=== PATIENT | female | born 1955 | race Caucasian/White ===

== ENCOUNTER → 2017-07-03 | Outpatient (CLI) | payer BC ==
[2016-12-29 15:00] VITALS: BP 136/68
[~2017-07-03] MED LIST: ALLO100T PO; ALLO300T PO; ATOR10TA60 PO; CANA300T PO; CHOL200044 PO; FURO40TA4 PO; LIRA0.6P2 SQ; LISI1TAB7 PO; LOSA100T6 PO; METF-620 PO; OMEG1CAP38 PO; PHEN1CPM PO
--- NOTE | 2017-07-04 08:55 | KCIC ---
DATE: 07/03/2017 EXAM: MAMMO JUMANA SCREENING BILATERAL HISTORY: Screening COMPARISON: 07/29/2015 This study was interpreted with the benefit of Computerized Aided Detection (CAD). FINDINGS: Breast Density: FATTY The Breast Parenchyma is primarily fatty replaced. Breast parenchyma level density A.. There has been little change when compared to the previous exam IMPRESSION: Benign findings BI-RADS CATEGORY: 2 BENIGN FINDING(S) RECOMMENDED FOLLOW-UP: 12M 12 MONTH FOLLOW-UP PQRS compliance statement: Patient information was entered into a reminder system with a target due date 07/03/2018 for the next mammogram. Mammography is a sensitive method for finding small breast cancers, but it does not detect them all and is not a substitute for careful clinical examination. A negative mammogram does not negate a clinically suspicious finding and should not result in delay in biopsying a clinically suspicious abnormality. "Our facility is accredited by the [employer] Mammography Program."
== END | disposition home or self-care (01) ==
LOC: KCIC MAMMO 16:42
PROVIDERS: ATTEND Family Medicine
DX: Z12.31 Encounter for screening mammogram for malignant neoplasm of breast (principal)
CPT/HCPCS: 77063; G0202; 77067

== ENCOUNTER 2017-10-27 16:46 | Inpatient (IN) | payer BC ==
[2017-10-27 17:36] LABS: ADD MAN DIFF? NO
[2017-10-27 17:39] LABS: BASO # 0.1 x10^3/uL (0.0-0.2); BASO % 1 % (0-3); EOS # 0.2 x10^3/uL (0.0-0.7); EOS % 3 % (0-3); HEMATOCRIT 38.7 % (36.0-47.0); HEMOGLOBIN 12.8 g/dL (12.0-15.5); LYMPH # 1.5 x10^3/uL (1.0-4.8); LYMPH % 19 % (24-48); MEAN CORPUSCULAR HEMOGLOBIN 30 pg (25-35); MEAN CORPUSCULAR HGB CONC 33 g/dL (31-37); MEAN CORPUSCULAR VOLUME 89 fL (79-100); MONO # 0.4 x10^3/uL (0.0-1.1); MONO % 5 % (0-9); NEUT # 5.7 x10^3uL (1.8-7.7); NEUT % 72 % (31-73); PLATELET COUNT 174 x10^3/uL (140-400); RED BLOOD COUNT 4.35 x10^6/uL (3.50-5.40); RED CELL DISTRIBUTION WIDTH 15.3 % (11.5-14.5); WHITE BLOOD COUNT 7.8 x10^3/uL (4.0-11.0)
[2017-10-27] MEDS: ONDANSETRON PF 4 MG/2 ML VIAL. IV ×2 (17:42)
[2017-10-27] MEDS: IV NORMAL SALINE 1000ML BAG 1,000 ML IV ×4 (17:42→22:11)
[2017-10-27] MEDS: fentaNYL PF VIAL 100 MCG/2 ML VIAL IV ×4 (17:42→22:29)
[2017-10-27] MEDS: NITROGLYCERIN SUBLINGUAL 0.4 MG BOTTLE OF 25. SL ×4 (17:43→17:54)
[2017-10-27] MEDS: ASPIRIN CHEWABLE 81 MG TABLET. PO ×2 (17:43)
[2017-10-27 17:50] LABS: ANION GAP 14 (6-14); BLOOD UREA NITROGEN 15 mg/dL (7-20); BUN/CREATININE RATIO 15 (6-20); CALCIUM 8.8 mg/dL (8.5-10.1); CARBON DIOXIDE 28 mmol/L (21-32); CHLORIDE 115 mmol/L (98-107); GFR 55.8; GLUCOSE 267 mg/dL (70-99); SODIUM 157 mmol/L (136-145)
[2017-10-27 17:56] LABS: ALBUMIN 2.8 g/dL (3.4-5.0); ALBUMIN/GLOBULIN RATIO 0.7 (1.0-1.7); ALK PHOS 122 U/L (46-116); ALT (SGPT) 57 U/L (14-59); AST (SGOT) 57 U/L (15-37); LIPASE 171 U/L (73-393); MAGNESIUM 1.5 mg/dL (1.8-2.4); TOTAL BILIRUBIN 0.3 mg/dL (0.2-1.0); TOTAL PROTEIN 7.1 g/dL (6.4-8.2)
[2017-10-27 18:02] LABS: TROPONINI < 0.017 ng/mL (0.000-0.055)
[2017-10-27 18:03] LABS: NT-PRO BNP 140 pg/mL (0-124)
[2017-10-27 18:03] LABS: CKMB INDEX 1.2 % (0-4); CKMB MASS 1.5 ng/mL (0.0-3.6); CREATINE KINASE 122 U/L (26-192)
[2017-10-27 18:21] LABS: AGAP ISTAT 15 mmol/L (6-14); BUN ISTAT 15 mg/dL (8-26); CHLORIDE ISTAT 100 mmol/L (98-110); CREATININE ISTAT 0.9 mg/dL (0.5-1.4); GLUCOSE ISTAT 219 mg/dL (70-99); HEMATOCRIT ISTAT 35 % (36-40); HEMOGLOBIN ISTAT 11.9 g/dL (12-15); ION CA ISTAT 1.17 mmol/L (1.13-1.32); POTASSIUM ISTAT 3.9 mmol/L (3.5-5.0); SODIUM ISTAT 138 mmol/L (135-145); TOT CO2 ISTAT 27 mmol/L (23-32)
[2017-10-27] MEDS ORDERED: DEXTROSE 50% 25 GM / 50ML DISP.SYRIN. IV ×2 (21:30)
[2017-10-27 22:05] LABS: TROPONINI < 0.017 ng/mL (0.000-0.055)
[2017-10-27 22:26] LABS: POC GLUCOSE 127 mg/dL (70-99)
[2017-10-27] MEDS: COLCHICINE 0.6 MG TABLET PO ×2 (22:30)
[2017-10-27] MEDS: CHOLECALCIFEROL (VITAMIN D3) 1,000 UNIT TABLET PO ×2 (22:30)
[2017-10-27] MEDS: LIDOCAINE (700MG/PATCH) PATCH. TD ×2 (22:31)
[2017-10-27] MEDS ORDERED: MORPHINE IR 15 MG TABLET PO ×2 (23:00)
[2017-10-27] MEDS: MORPHINE SULFATE 4 MG/ML DISP.SYRIN. IV ×2 (23:20)
[2017-10-28] MEDS: MORPHINE SULFATE 4 MG/ML DISP.SYRIN. IV ×2 (02:38)
[2017-10-28] MEDS: ONDANSETRON PF 4 MG/2 ML VIAL. IV ×4 (04:06→11:53)
[2017-10-28 05:03] LABS: ADD MAN DIFF? NO
[2017-10-28 05:21] LABS: BASO # 0.1 x10^3/uL (0.0-0.2); BASO % 1 % (0-3); EOS # 0.3 x10^3/uL (0.0-0.7); EOS % 3 % (0-3); HEMATOCRIT 36.6 % (36.0-47.0); HEMOGLOBIN 11.9 g/dL (12.0-15.5); LYMPH # 1.8 x10^3/uL (1.0-4.8); LYMPH % 22 % (24-48); MEAN CORPUSCULAR HEMOGLOBIN 29 pg (25-35); MEAN CORPUSCULAR HGB CONC 33 g/dL (31-37); MEAN CORPUSCULAR VOLUME 89 fL (79-100); MONO # 0.5 x10^3/uL (0.0-1.1); MONO % 6 % (0-9); NEUT # 5.6 x10^3uL (1.8-7.7); NEUT % 69 % (31-73); PLATELET COUNT 159 x10^3/uL (140-400); RED CELL DISTRIBUTION WIDTH 15.7 % (11.5-14.5); WHITE BLOOD COUNT 8.2 x10^3/uL (4.0-11.0)
[2017-10-28 06:17] LABS: ANION GAP 8 (6-14); BLOOD UREA NITROGEN 15 mg/dL (7-20); CALCIUM 8.8 mg/dL (8.5-10.1); CARBON DIOXIDE 30 mmol/L (21-32); CHLORIDE 102 mmol/L (98-107); CREATININE 0.8 mg/dL (0.6-1.0); GFR 72.2; GLUCOSE 126 mg/dL (70-99); POTASSIUM 3.7 mmol/L (3.5-5.1); SODIUM 140 mmol/L (136-145)
[2017-10-28 06:25] LABS: URIC ACID 4.1 mg/dL (2.6-6.0)
[2017-10-28] MEDS: IV NORMAL SALINE 1000ML BAG 1,000 ML IV ×4 (07:45→10:19)
[2017-10-28 07:58] LABS: POC GLUCOSE 229 mg/dL (70-99)
[2017-10-28] MEDS: LOSARTAN POTASSIUM 50 MG TABLET. PO ×2 (08:02)
[2017-10-28] MEDS: INSULIN ASPART 300 UNITS/3 ML INSULN.PEN SQ ×6 (08:03→17:02)
[2017-10-28] MEDS: LISINOPRIL 20 MG TABLET PO ×2 (09:00)
[2017-10-28] MEDS: FUROSEMIDE 40 MG TABLET. PO ×4 (09:00→13:45)
[2017-10-28] MEDS: COLCHICINE 0.6 MG TABLET PO ×2 (09:00)
[2017-10-28] MEDS ORDERED: ALLOPURINOL 300 MG TABLET. PO ×2 (09:00)
[2017-10-28] MEDS: ATORVASTATIN CALCIUM 10 MG TABLET. PO ×4 (09:00→21:11)
[2017-10-28] MEDS: CHOLECALCIFEROL (VITAMIN D3) 1,000 UNIT TABLET PO ×4 (09:00→21:11)
[2017-10-28] MEDS: LIDOCAINE (700MG/PATCH) PATCH. TD ×2 (09:00)
[2017-10-28] MEDS: hydroCHLOROthiazide 25 MG TABLET PO ×2 (09:00)
[2017-10-28] MEDS ORDERED: ALLOPURINOL 100 MG TABLET. PO ×2 (09:00)
[2017-10-28] MEDS: ACETAMINOPHEN 325 MG TABLET. PO ×2 (09:30)
[2017-10-28] MEDS ORDERED: ONDANSETRON PF 4 MG/2 ML VIAL. IV ×2 (11:00)
[2017-10-28 11:43] LABS: POC GLUCOSE 213 mg/dL (70-99)
[2017-10-28] MEDS: amLODIPine BESYLATE 10 MG TABLET PO ×2 (13:08)
[2017-10-28 16:53] LABS: POC GLUCOSE 168 mg/dL (70-99)
[2017-10-28 21:09] LABS: POC GLUCOSE 143 mg/dL (70-99)
[2017-10-29 05:17] LABS: ADD MAN DIFF? NO
[2017-10-29 05:38] LABS: BASO # 0.1 x10^3/uL (0.0-0.2); BASO % 1 % (0-3); EOS # 0.2 x10^3/uL (0.0-0.7); EOS % 3 % (0-3); HEMATOCRIT 35.9 % (36.0-47.0); HEMOGLOBIN 12.1 g/dL (12.0-15.5); LYMPH # 1.3 x10^3/uL (1.0-4.8); LYMPH % 18 % (24-48); MEAN CORPUSCULAR HEMOGLOBIN 30 pg (25-35); MEAN CORPUSCULAR HGB CONC 34 g/dL (31-37); MEAN CORPUSCULAR VOLUME 88 fL (79-100); MONO # 0.5 x10^3/uL (0.0-1.1); MONO % 7 % (0-9); NEUT % 71 % (31-73); PLATELET COUNT 160 x10^3/uL (140-400); RED BLOOD COUNT 4.07 x10^6/uL (3.50-5.40); RED CELL DISTRIBUTION WIDTH 15.1 % (11.5-14.5)
[2017-10-29 05:48] LABS: ANION GAP 7 (6-14); BLOOD UREA NITROGEN 19 mg/dL (7-20); CALCIUM 9.1 mg/dL (8.5-10.1); CARBON DIOXIDE 30 mmol/L (21-32); CHLORIDE 101 mmol/L (98-107); CREATININE 1.1 mg/dL (0.6-1.0); GLUCOSE 165 mg/dL (70-99); POTASSIUM 3.8 mmol/L (3.5-5.1); SODIUM 138 mmol/L (136-145)
[2017-10-29] MEDS: INSULIN ASPART 300 UNITS/3 ML INSULN.PEN SQ ×4 (08:00→12:00)
[2017-10-29 08:28] LABS: POC GLUCOSE 231 mg/dL (70-99)
[2017-10-29] MEDS: LIDOCAINE (700MG/PATCH) PATCH. TD ×2 (09:00)
[2017-10-29] MEDS: FUROSEMIDE 40 MG TABLET. PO ×2 (09:37)
[2017-10-29] MEDS: LOSARTAN POTASSIUM 50 MG TABLET. PO ×2 (09:37)
[2017-10-29] MEDS: COLCHICINE 0.6 MG TABLET PO ×2 (09:38)
[2017-10-29] MEDS: CHOLECALCIFEROL (VITAMIN D3) 1,000 UNIT TABLET PO ×2 (09:38)
[2017-10-29] MEDS: amLODIPine BESYLATE 10 MG TABLET PO ×2 (09:38)
[2017-10-29 11:38] LABS: POC GLUCOSE 212 mg/dL (70-99)
== END 2017-10-29 14:40 | disposition home or self-care (01) | DRG 313 ==
LOC: ER 16:46 → 5 SOUTH 18:07
DX: R07.89 Other chest pain (principal); I25.119 Atherosclerotic heart disease of native coronary artery with unspecified angina pectoris; I50.33 Acute on chronic diastolic (congestive) heart failure; E11.22 Type 2 diabetes mellitus with diabetic chronic kidney disease; E66.01 Morbid (severe) obesity due to excess calories; I13.0 Hypertensive heart and chronic kidney disease with heart failure and stage 1 through stage 4 chronic kidney disease, or unspecified chronic kidney disease; Z68.43 Body mass index [BMI] 50.0-59.9, adult; E78.5 Hyperlipidemia, unspecified; G47.33 Obstructive sleep apnea (adult) (pediatric); K21.9 Gastro-esophageal reflux disease without esophagitis; N18.9 Chronic kidney disease, unspecified; Z82.49 Family history of ischemic heart disease and other diseases of the circulatory system; Z87.891 Personal history of nicotine dependence; Z96.659 Presence of unspecified artificial knee joint; M19.90 Unspecified osteoarthritis, unspecified site; Z88.0 Allergy status to penicillin; Z90.49 Acquired absence of other specified parts of digestive tract; Z90.710 Acquired absence of both cervix and uterus
CPT/HCPCS: 36415; 71045; 80047; 80048; 80053; 82553; 82962; 83690; 83735; 83880; 84484; 84550; 85025; 93005; 96374; 96375; 99285; 99285-25; J1815; J2270; J2405; J3010; J7030

== ENCOUNTER → 2018-03-02 | Outpatient (CLI) | payer BC | END | disposition home or self-care (01) | LOC: US 12:34 | DX: I87.2 Venous insufficiency (chronic) (peripheral) (principal); M79.89 Other specified soft tissue disorders; M79.604 Pain in right leg; M79.605 Pain in left leg | CPT/HCPCS: 93970 ==

== ENCOUNTER → 2018-08-13 | Outpatient (CLI) | payer MEDICARE, BC ==
[2017-10-29 10:59] VITALS: BP 143/67
[~2018-08-13] MED LIST changes: +AMLO10TA4 PO; +INSU3INS SQ; -LOSA100T6 PO; +LOSA100T7 PO; -METF-620 PO; +METF10007 PO
--- NOTE | 2018-08-14 13:15 | KCIC ---
Bilateral digital screening mammograms with 3-D tomosynthesis: Reason for examination: Routine screening. Comparison is made to previous studies dated 07/03/2017 and 07/29/2015. Bilateral mammograms in CC and oblique projections were obtained with 2-D imaging and 3-D tomosynthesis imaging on a [employer] Inspiration unit and reviewed on the workstation. Interpretation was made with the benefit of CAD. The skin and nipples show no abnormalities. No abnormal axillary lymph nodes are seen. The breast parenchyma is predominantly fatty. (Breast density: Category A.) There are no dominant masses, suspicious calcifications or architectural distortion. Impression: No evidence of malignancy. Recommend routine screening. BI-RAD Category 1: Negative. "Our facility is accredited by the [employer] Mammography Program." This patient's information has been entered into a reminder system for the patient to be notified with the results of her examination and a target date for the next mammogram. Electronically signed by: Domonique Zimmer MD (08/14/2018 1:11 PM) [id number]
== END | disposition home or self-care (01) ==
LOC: KCIC MAMMO 16:34
PROVIDERS: ATTEND Family Medicine
DX: Z12.31 Encounter for screening mammogram for malignant neoplasm of breast (principal)
CPT/HCPCS: 77063; 77067

== ENCOUNTER → 2018-11-20 | Outpatient (CLI) | payer MEDICARE, BC ==
[2017-10-29 10:59] VITALS: BP 143/67
[~2018-11-20] MED LIST changes: +IOHEXOL 300 MG/ML 100ML VIAL. IV ONE; +LOSA100T14 PO; -LOSA100T7 PO
--- NOTE | 2018-11-20 14:31 | KCIC ---
CT ANGIOGRAPHY CHEST Indication: Elevated d-dimer. Bilateral leg edema. . Comparison: No comparison is available. Technique: After intravenous contrast administration, CT imaging was performed of the chest. MIP reconstructions were obtained. Exposure: One or more of the following individualized dose reduction techniques were utilized for this examination: 1. Automated exposure control 2. Adjustment of the mA and/or kV according to patient size 3. Use of iterative reconstruction technique. Findings: No evidence of a pulmonary embolism. Note there is suboptimal visualization of the segmental branches due to limited opacification. No aortic aneurysm or evidence of aortic dissection in the chest. Proximal great vessels are patent. No significant lymph node enlargement. No pericardial effusion or pleural effusion is identified. Thyroid unremarkable. Small noncalcified pulmonary nodule in the right upper lobe measures 6 mm in diameter, coronal image 82, as well as axial series 7, image 50. No consolidating infiltrate. Trachea and mainstem bronchi appear patent. Limited scans through the upper abdomen demonstrate no acute abnormality. Gallbladder appears surgically absent. Degenerative spondylosis of the spine. Small sclerotic lesion within an upper thoracic vertebrae is likely a benign bone island. IMPRESSION: 1. Negative for pulmonary embolism. 2. Incidental right upper lobe pulmonary nodule measures 6 mm. As per revised Fleischner guidelines, recommend follow-up CT chest in 6-12 months. Electronically signed by: Angel Liu MD (11/20/2018 2:28 PM) [facility]
--- NOTE | 2018-11-20 14:51 | KCIC ---
Bilateral lower extremity venous duplex study 11/20/2018 1:00 PM Clinical History: Bilateral lower extremity pain and edema. Comparison: None Technique: Using a combination of real time ultrasound imaging and color-flow and pulse Doppler imaging techniques along with graded compression and augmentation, duplex evaluation of the deep venous system of the both lower extremities was performed. Multiple images were obtained. Findings: There is no sonographic evidence of deep venous thrombosis involving the visualized deep venous structures of either lower extremity. Peroneal veins are poorly visualized bilaterally secondary to subcutaneous edema patient body habitus. Impression: No evidence of deep venous thrombosis involving the visualized deep veins of the bilateral lower extremities Electronically signed by: Robert Pena MD (11/20/2018 2:48 PM) [facility]
== END | disposition home or self-care (01) ==
LOC: KCIC US 13:00
PROVIDERS: ATTEND Family Medicine
DX: R91.1 Solitary pulmonary nodule (principal); M47.894 Other spondylosis, thoracic region; I10 Essential (primary) hypertension; E11.9 Type 2 diabetes mellitus without complications; R60.0 Localized edema
CPT/HCPCS: 71275; 82565; 93970; Q9967

== ENCOUNTER → 2019-06-03 | Outpatient (CLI) | payer MEDICARE, BC ==
[2017-10-29 10:59] VITALS: BP 143/67
[~2019-06-03] MED LIST changes: -IOHEXOL 300 MG/ML 100ML VIAL. IV ONE; +LISI1TAB20 PO; -LISI1TAB7 PO
--- NOTE | 2019-06-03 12:37 | KCIC ---
EXAM: CT Chest without IV contrast CLINICAL HISTORY: LUNG NODULE SURVEILLANCE COMPARISON: 11/20/2018 TECHNIQUE: CT of the chest without intravenous contrast. Axial, coronal and sagittal reformatted images were generated. ---PQRS compliance statement - One or more of the following individualized dose reduction techniques were utilized for this study: 1. Automated exposure control 2. Adjustment of the mA and/or kV according to patient size 3. Use of iterative reconstruction technique--- FINDINGS: Lack of intravenous contrast limits evaluation of solid organs, vasculature, and lymph nodes. Chest: Mitral annular calcifications are seen. Heart is not enlarged. No pericardial effusion. Aortic calcifications are noted. No pleural effusion or pneumothorax. Within the constraints of this noncontrast examination, no mediastinal or hilar lymphadenopathy. A 5 mm right upper lobe lung nodule (series 6 image 63) is stable. In addition a 5 mm lung nodule (series 6 image 65) in the right upper lobe is also stable. 5 mm fissural lung nodule along the major fissure (series 2 image 28) is stable. A few other lung nodules measuring 3-4 mm are seen bilaterally, also stable. Visualized Upper abdomen: Mild nodular appearance of the hepatic margin with asymmetric enlargement of the left hepatic lobe, nonspecific but may be seen with cirrhosis. Cholecystectomy clips are seen. Bones: Osseous structures are grossly stable. Degenerative changes of spine are seen. IMPRESSION: 1. Multiple bilateral lung nodules are seen measuring up to 5 mm, in general stable. Continued follow-up in 12 months is recommended to ensure stability. Electronically signed by: Fabricio Bailey MD (06/03/2019 12:35 PM) [facility]
== END | disposition home or self-care (01) ==
LOC: KCIC CT 10:06
PROVIDERS: ATTEND Family Medicine
DX: I70.0 Atherosclerosis of aorta (principal); I34.8 Other nonrheumatic mitral valve disorders; R91.8 Other nonspecific abnormal finding of lung field; M47.814 Spondylosis without myelopathy or radiculopathy, thoracic region; Z90.49 Acquired absence of other specified parts of digestive tract
CPT/HCPCS: 71250

== ENCOUNTER → 2019-09-16 | Outpatient (CLI) | payer MEDICARE, BC ==
[2017-10-29 10:59] VITALS: BP 143/67
--- NOTE | 2019-09-16 12:17 | CARD ---
MR#: [id number] Date of Study: 09/16/2019 Ordering Physician: STELLA GOMEZ, Referring Physician: STELLA GOMEZ, Tech: Oriana Benjamin [facility] RE[facility] EXAM: Two-dimensional and M-mode echocardiogram with Doppler and color Doppler. Other Information Quality : AverageHR: 68bpm Rhythm : NSRTechnically limited study due to body habitus. INDICATION Dyspnea 2D DIMENSIONS RVDd2.8 (2.9-3.5cm)Left Atrium(2D)2.6 (1.6-4.0cm) IVSd1.2 (0.7-1.1cm)Aortic Root(2D)3.0 (2.0-3.7cm) LVDd4.9 (3.9-5.9cm)LVOT Diameter2.0 (1.8-2.4cm) PWd1.0 (0.7-1.1cm)LVDs3.4 (2.5-4.0cm) FS (%) 30.0 %SV64.2 ml LVEF(%)57.1 (>50%) M-Mode DIMENSIONS Left Atrium(MM)2.73 (2.5-4.0cm)Aortic Root3.38 (2.2-3.7cm) Aortic Valve AoV Peak Hiro.181.0cm/sAoV VTI34.6cm AO Peak GR.13.1mmHgLVOT Peak Hiro.112.0cm/s AO Mean GR.8mmHgAVA (VMAX)2.01cm2 HUMPHREY (VTI)2.00cm2 Mitral Valve MV E Onmxqadb62.8cm/sMV E Peak Gr.7mmHg MV DECEL CPRA967woOG A Qzvcbksh878.7cm/s MV E Mean Gr.2mmHgE/A Ratio0.8 Pulmonary Valve PV Peak Brgbkjqi037.9cm/s Tricuspid Valve TR P. Feqznsgj924db/sRAP CIGFQESX3ysRh TR Peak Gr.90kbZiVDCO83nhGm LEFT VENTRICLE The left ventricle is normal size. There is mild concentric left ventricular hypertrophy. The left ve ntricular systolic function is normal and the ejection fraction is within normal range. The Ejection Fraction is 55-60%. There is normal LV segmental wall motion. Transmitral Doppler flow pattern is Gra de I-abnormal relaxation pattern. RIGHT VENTRICLE The right ventricle is normal size. There is normal right ventricular wall thickness. The right ventr icular systolic function is normal. ATRIA The left atrium size is normal. The right atrium size is normal. The interatrial septum is intact wit h no evidence for an atrial septal defect or patent foramen ovale as noted on 2-D or Doppler imaging. AORTIC VALVE The aortic valve is normal in structure and function. The aortic valve is trileaflet. Doppler and Col or Flow revealed no significant aortic regurgitation. There is no significant aortic valvular stenosi s. There is no aortic valvular vegetation. MITRAL VALVE Mitral annular calcification is mild. There is no evidence of mitral valve prolapse. There is no mitr al valve stenosis. Doppler and Color-flow revealed trace mitral regurgitation. TRICUSPID VALVE The tricuspid valve is normal in structure and function. Doppler and Color Flow revealed trace tricus pid regurgitation. The PA pressure was estimated at 31 mmHg. There is no tricuspid valve prolapse or vegetation. There is no tricuspid valve stenosis. PULMONIC VALVE The pulmonic valve is not well visualized. GREAT VESSELS The aortic root is normal in size. The ascending aorta is normal in size. The IVC is normal in size a nd collapses >50% with inspiration. PERICARDIAL EFFUSION There is no evidence of significant pericardial effusion. Critical Notification Critical Value: No <Conclusion> The left ventricle is normal size. The left ventricular systolic function is normal and the ejection fraction is within normal range. The Ejection Fraction is 55-60%. There is mild concentric left ventricular hypertrophy. Doppler and Color Flow revealed no significant aortic regurgitation. There is no significant aortic valvular stenosis. Doppler and Color-flow revealed trace mitral regurgitation. Doppler and Color Flow revealed trace tricuspid regurgitation. The PA pressure was estimated at 31 mmHg. Signed by : Neri Randle MD Electronically Approved : 09/16/2019 12:16:55
== END | disposition home or self-care (01) ==
LOC: ECHO 10:47
PROVIDERS: ATTEND Internal Medicine Cardiovascular Disease
DX: I34.8 Other nonrheumatic mitral valve disorders (principal); I51.7 Cardiomegaly
CPT/HCPCS: 93306

== ENCOUNTER → 2020-07-20 | Outpatient (CLI) | payer MEDICARE, BC ==
[2017-10-29 10:59] VITALS: BP 143/67
--- NOTE | 2020-07-20 08:41 | KCIC ---
CT chest without contrast PQRS statement: CT scans at this facility use dose reduction including either automated exposure control, iterative reconstructions, and /or weight based radiation dosing via mA and kV modification when appropriate to reduce radiation dose to as low as reasonably achievable. HISTORY: Pulmonary nodule. COMPARISON: CT chest the 2018 FINDINGS: Heart size is normal. Above the diaphragmatic hiatus left of the esophagus there is a 2.5 cm oval fluid density within internal density of 6 units which is stable most likely a GI duplication cyst or lymphocele. Mild surface irregularity of the liver raising the possibility of cirrhosis. Mediastinal lymph nodes short axis diameters less than 1 cm within the range of normal stable. Calcified plaque thoracic aorta. Pulmonary vessels and esophagus unremarkable. Right upper lobe 5 mm solid nodule image 62 stable. Right upper lobe 5 mm solid nodule image 66 stable. Mild interstitial smooth thickening of the medial basilar posterior basilar left lower lobe is stable may be chronic interstitial lung disease changes, no fibrosis evident. 5 mm somewhat linear scar or nodule basilar right lower lobe abutting the diaphragm image 140 stable. Tiny lymph nodes or nodules of the right major fissure measuring about the 4 mm stable. No new nodule. No pulmonary opacity. No pleural effusions. Bones are unremarkable. IMPRESSION: No acute process. Small solid pulmonary nodules measuring up to 5 mm in size are stable to May 2019. Per Fleischner guidelines given over 12 months of stability these are considered benign. Incidental findings as described above. Electronically signed by: Roberto Carmona MD (07/20/2020 8:38 AM) [id number]
== END ==
LOC: KCIC CT 08:05
PROVIDERS: ATTEND Family Medicine
DX: R91.8 Other nonspecific abnormal finding of lung field (principal); J92.9 Pleural plaque without asbestos; I70.0 Atherosclerosis of aorta
CPT/HCPCS: 71250

== ENCOUNTER → 2020-10-02 | Outpatient (CLI) | payer MEDICARE, BC ==
[2017-10-29 10:59] VITALS: BP 143/67
[2020-10-06 06:46] LABS: ANTITHROMBIN III SEE SEPARATE REPORT; LUPUS ANTICOAGULANT SEE SEPARATE REPORT; PROTEIN C ACTIVITY SEE SEPARATE REPORT; PROTEIN S ACTIVITY SEE SEPARATE REPORT
[2020-10-06 06:48] LABS: CARDIOLIPIN ANTIBODIES SEE SEPARATE REPORT
== END ==
LOC: ONCLAB 11:53
PROVIDERS: ATTEND Internal Medicine Hematology & Oncology
DX: R91.1 Solitary pulmonary nodule (principal); Z86.718 Personal history of other venous thrombosis and embolism
CPT/HCPCS: 36415; 81241; 85300; 85302; 85306; 85610; 86146; 86147

== ENCOUNTER → 2020-10-07 | Outpatient (CLI) | payer MEDICARE, BC ==
[2017-10-29 10:59] VITALS: BP 143/67
[~2020-10-07] MED LIST changes: +ZOLPIDEM 5 MG TABLET. PO ONE
--- NOTE | 2020-10-08 11:25 | SLEEP ---
DATE OF STUDY: 10/07/2020 SLEEP STUDY ATTENDING PHYSICIAN: Dr. Wil Cobian. REFERRING PHYSICIAN: Pamella Shay MD The patient is a 65-year-old who weighs 337 pounds with a BMI of 56. The patient's [place] score was 10. The patient underwent split night study performed at [facility]. During the night of the study, the patient spent 436 minutes in bed and slept for 323 minutes with a sleep efficiency of 74%. Sleep latency was 12 minutes with a REM latency of 239 minutes. Sleep architecture showed increased stage 1 sleep, normal stage 2 sleep, normal slow wave and reduced REM sleep. During the initial diagnostic portion of the study, the patient slept for 113 minutes. During that time, there were no obstructive central or mixed apneas. There were 50 hypopneas. The patient's AHI was 27 per hour. REM sleep was not seen during the diagnostic portion. Supine sleep was not observed either. Nocturnal oximetry study revealed a mean oxygen saturation of 91% with the lowest of 80%. 83 minutes were spent with oxygen saturation of less than 89%. PLMS were seen at index of 30 per hour and 8 per hour caused EEG arousals. EKG monitoring revealed average heart rate of 71 beats per minute, no sustained arrhythmias observed. The patient was started on CPAP at 5 cm water and titrated up to 13 cm water. At the final pressure, the patient slept for 57 minutes. The patient's AHI was reduced to 0 per hour and oxygen saturation remained above 88%. The patient had supine as well as REM sleep. IMPRESSION: 1. Moderate obstructive sleep apnea at an AHI of 27 per hour. Absence of supine and REM sleep during the diagnostic portion can underestimate the severity of sleep apnea. 2. Nocturnal hypoxia secondary to obstructive sleep apnea and suspected hypoventilation, but resolved with CPAP. 3. Moderate periodic limb movements. RECOMMENDATIONS: 1. CPAP at 13 cm water completely eliminated the patient's sleep apnea and should be used on a nightly basis. 2. Follow up in 4-6 weeks to assess compliance with CPAP and to document clinical improvement. 3. Weight loss is strongly advised. 4. Avoid TEAROOM HOSTESS depressants. 5. Cautioned regarding driving until symptoms of sleep apnea resolve with the use of CPAP. 6. The PLMS does not need to be treated unless the patient has symptoms of restless legs during the day. JOSHUA KELLEY MD DR: Rabia JOB#: [id number] / [id number] WIL Glez SABATO MD
== END ==
LOC: SLPLAB 19:34
PROVIDERS: ATTEND Internal Medicine Pulmonary Disease
DX: G47.33 Obstructive sleep apnea (adult) (pediatric) (principal); G47.61 Periodic limb movement disorder
CPT/HCPCS: 95810

== ENCOUNTER → 2021-02-22 | Outpatient (CLI) | payer MEDICARE, BC ==
[2017-10-29 10:59] VITALS: BP 143/67
[~2021-02-22] MED LIST changes: -ZOLPIDEM 5 MG TABLET. PO ONE
--- NOTE | 2021-02-22 11:45 | KCIC ---
Bilateral digital screening mammograms with 3-D tomosynthesis: Reason for examination: Routine screening. Comparison is made to previous studies dated between 08/13/2018 and 07/29/2015. Bilateral mammograms in CC and oblique projections were obtained with 2-D imaging and 3-D tomosynthes is imaging on a [employer] Inspiration unit and reviewed on the workstation. Interpretation was made with the benefit of CAD. The skin and nipples show no abnormalities. No abnormal axillary lymph nodes are seen. The breast par enchyma is predominantly fatty. (Breast density: Category A.) There are no dominant masses, suspiciou s calcifications or architectural distortion. Benign-appearing calcifications are again seen. Impression: No evidence of malignancy. Recommend routine screening. BI-RAD Category 2: Benign. "Our facility is accredited by the [employer] Mammography Program." This patient's information has been entered into a reminder system for the patient to be notified wit h the results of her examination and a target date for the next mammogram. Electronically signed by: Domonique Zimmer MD (02/22/2021 11:42 AM) [id number]
== END ==
LOC: KCIC MAMMO 09:45
PROVIDERS: ATTEND Family Medicine
DX: Z12.31 Encounter for screening mammogram for malignant neoplasm of breast (principal)
CPT/HCPCS: 77063; 77067

== ENCOUNTER → 2021-08-09 | Outpatient (CLI) | payer MEDICARE, BC ==
[2017-10-29 10:59] VITALS: BP 143/67
[~2021-08-09] MED LIST changes: -LISI1TAB20 PO; +LISI1TAB39 PO
--- NOTE | 2021-08-09 14:00 | CARD ---
MR#: [id number] Date of Study: 08/09/2021 Ordering Physician: STELLA GOMEZ, Referring Physician: STELLA GOMEZ, Tech: Wendie Goodson [facility] APPROVED REPORT EXAM: Two-dimensional and M-mode echocardiogram with Doppler and color Doppler. Other Information Quality : AverageHR: 54bpm Rhythm : NSR INDICATION Cardiac Disease: CAD RISK FACTORS Hypertension Obesity Hyperlipidemia Diabetes 2D DIMENSIONS RVDd3.3 (2.9-3.5cm)Left Atrium(2D)3.6 (1.6-4.0cm) IVSd1.0 (0.7-1.1cm)Aortic Root(2D)3.5 (2.0-3.7cm) LVDd4.3 (3.9-5.9cm)LVOT Diameter2.1 (1.8-2.4cm) PWd1.0 (0.7-1.1cm)LVDs1.7 (2.5-4.0cm) FS (%) 61.0 %SV75.3 ml LVEF(%)90.3 (>50%) Aortic Valve AoV Peak Hiro.165.5cm/sAoV VTI39.0cm AO Peak GR.11.0mmHgLVOT Peak Hiro.111.3cm/s AO Mean GR.5mmHgAVA (VMAX)2.36cm2 Mitral Valve MV E Xmghiqnu783.7cm/sMV DECEL NVNA079ko MV A Fszqhvci321.6cm/sE/A Ratio0.9 Pulmonary Valve PV Peak Ztzsjdcs064.7cm/s Tricuspid Valve TR P. Umnwkddn539un/sTR Peak Gr.30mmHg LEFT VENTRICLE The left ventricle is normal size. There is normal left ventricular wall thickness. The left ventricu lar systolic function is normal. Estimated ejection fraction 60-65%. There is normal LV segmental wal l motion. The left ventricular diastolic function and filling is normal for age. RIGHT VENTRICLE The right ventricle is normal size. There is normal right ventricular wall thickness. The right ventr icular systolic function is normal. ATRIA The left atrium size is normal. The right atrium is borderline dilated. The interatrial septum is int act with no evidence for an atrial septal defect or patent foramen ovale as noted on 2-D or Doppler i maging. AORTIC VALVE The aortic valve is normal in structure and function. Doppler and Color Flow revealed no significant aortic regurgitation. There is no aortic valvular vegetation. MITRAL VALVE The mitral valve is normal in structure and function. There is no evidence of mitral valve prolapse. There is no mitral valve stenosis. Doppler and Color-flow revealed mild mitral regurgitation. TRICUSPID VALVE The tricuspid valve is normal in structure and function. Doppler and Color Flow revealed mild tricusp id regurgitation. Estimated PAP 33 mmHg. There is no tricuspid valve stenosis. PULMONIC VALVE The pulmonary valve is normal in structure and function. Doppler and Color Flow revealed no pulmonic valvular regurgitation. GREAT VESSELS The aortic root is normal in size. The ascending aorta is normal in size. The IVC is normal in size a nd collapses >50% with inspiration. PERICARDIAL EFFUSION There is no evidence of significant pericardial effusion. Critical Notification Critical Value: No <Conclusion> The left ventricular systolic function is normal. Estimated ejection fraction 60-65%. There is normal LV segmental wall motion. Mild mitral regurgitation. Mild tricuspid regurgitation. Estimated PAP 33 mmHg. There is no evidence of significant pericardial effusion. Signed by : Darell Burns, Electronically Approved : 08/09/2021 14:00:03
== END ==
LOC: ECHO 10:39
PROVIDERS: ATTEND Internal Medicine Cardiovascular Disease
DX: I08.1 Rheumatic disorders of both mitral and tricuspid valves (principal); I10 Essential (primary) hypertension; I25.10 Atherosclerotic heart disease of native coronary artery without angina pectoris; E11.9 Type 2 diabetes mellitus without complications; E78.5 Hyperlipidemia, unspecified; E66.9 Obesity, unspecified
CPT/HCPCS: 93306